=== PATIENT | male | born 1940 | race Caucasian/White ===

== ENCOUNTER 2018-02-13 10:45 | Emergency (ER) | payer OTHER ==
[~2018-02-13] VITALS: Ht 170.2 cm; Wt 59.0 kg
--- NOTE | 2018-02-13 10:50 | NUR ---
Dr London at the bedside for MSE.
[2018-02-13 11:12] LABS: BASOPHILS # (AUTO) 0.1 K/uL (0.0-8.0); BASOPHILS % (AUTO) 0.9 % (0.0-2.0); EOSINOPHILS # (AUTO) 0.2 K/uL (0.0-0.7); EOSINOPHILS % (AUTO) 3.1 % (0.0-7.0); HEMATOCRIT 39.8 % (36.7-47.1); HEMOGLOBIN 13.3 g/dL (12.5-16.3); LYMPHOCYTES # (AUTO) 0.9 K/uL (20.0-40.0); LYMPHOCYTES % (AUTO) 13.9 % (20.5-51.5); MEAN CORPUSCULAR HEMOGLOBIN 29.2 uug (23.8-33.4); MEAN CORPUSCULAR HGB CONC 33 g/dL (32.5-36.3); MEAN CORPUSCULAR VOLUME 87.5 fL (73.0-96.2); MONOCYTES # (AUTO) 0.4 K/uL (2.0-10.0); MONOCYTES % (AUTO) 7.3 % (0.0-11.0); NEUTROPHILS # (AUTO) 4.6 K/uL (1.8-8.9); NEUTROPHILS % (AUTO) 74.8 % (38.5-71.5); PLATELET COUNT (AUTO) 246 K/uL (152-348); RED BLOOD CELL COUNT(AUTO) 4.55 MIL/uL (4.06-5.63); WHITE BLOOD COUNT (AUTO) 6.2 K/uL (3.6-10.2)
--- NOTE | 2018-02-13 11:12 | NUR ---
Pt out of ER for Ct.
[2018-02-13 11:18] LABS: CARBON DIOXIDE 28 mmol/L (21-32); CHLORIDE 106 mmol/L (98-107); CREATININE 0.9 mg/dL (0.6-1.3); GLUCOSE 98 mg/dL (74-106); POTASSIUM 4.1 mmol/L (3.5-5.1); UREA NITROGEN, BLOOD 26 mg/dL (7-18)
[2018-02-13 11:24] LABS: ALANINE AMINOTRANSFERASE 13 U/L (16-63); ALKALINE PHOSPHATASE 123 U/L (50-136); ASPARTATE AMINOTRANSFERASE 16 U/L (15-37); BILIRUBIN,DIRECT 0.1 mg/dL (0.0-0.2); BILIRUBIN,TOTAL 0.5 mg/dL (0.2-1.0); TOTAL PROTEIN, SERUM 7.3 g/dL (6.4-8.2)
--- NOTE | 2018-02-13 11:29 | NUR ---
Pt back from CT, resting in bed. Family at the bedside.
[2018-02-13 12:23] VITALS: BP 133/71
--- NOTE | 2018-02-13 12:30 | NUR ---
called med response, ETA for BLS transfer is 1245.
--- NOTE | 2018-02-13 12:38 | NUR ---
Pt attempted to get to wheelchair to be transfered to pt's daughter auto, but unable. Per pt's family, they need to have pt transfered by private ambulance.
[2018-02-13] MEDS ORDERED: FAMO40TA7 PO (12:53)
[2018-02-13] MEDS ORDERED: ALEN70TA3 PO (12:53)
[2018-02-13] MEDS ORDERED: CARB1TAB40 PO (12:53)
[2018-02-13] MEDS ORDERED: BUPR150T10 PO (12:53)
[2018-02-13] MEDS ORDERED: PRAM3.75 PO (12:53)
[2018-02-13] MEDS ORDERED: LORA0.5T PO (12:53)
[2018-02-13] MEDS ORDERED: ENTA200T PO (12:53)
[2018-02-13] MEDS ORDERED: CARB1TAB21 PO (12:53)
[2018-02-13] MEDS ORDERED: CALC-960 PO (12:53)
[2018-02-13] MEDS ORDERED: TURM1CAP2 PO (12:54)
[2018-02-13] MEDS ORDERED: DOCU250C14 PO (12:54)
[2018-02-13] MEDS ORDERED: BISA-79 PO (12:54)
[2018-02-13] MEDS ORDERED: CHOL200078 PO (12:54)
[2018-02-13] MEDS ORDERED: MIRTAZAPINE PO (12:54)
[2018-02-13] MEDS ORDERED: TAMS0.4C34 PO (12:54)
[2018-02-13] MEDS ORDERED: IV NORMAL SALINE 1000 ML BAG IV ONE (13:30)
--- NOTE | 2018-02-13 13:49 | NUR ---
Pt's family requested pt to go to [facility] and EMT's are not required to do that. Per ER MD [facility] was called. Spoke to [facility] rep.
--- NOTE | 2018-02-13 13:54 | NUR ---
EVERETT CURTIS spoke to [facility] accepting , Dr PRESTON. Transfer info recieved from [facility], BLS transfer to be here at 1445. Pt was fed by family.
--- NOTE | 2018-02-13 14:13 | NUR ---
Report given to ER Dia Black RN.
--- NOTE | 2018-02-13 14:26 | NUR ---
Report given to supervisor assembly department, Pt left ER in stable condition. All belongings sent with pt.
== END 2018-02-13 14:35 | disposition short-term general hospital (02) ==
LOC: ER 10:45
DX: G20 Parkinson's disease (principal); M54.5 Low back pain; R53.1 Weakness; Z79.899 Other long term (current) drug therapy
CPT/HCPCS: 36415; 72131; 80048; 80076; 85025; 99285; A4663; J7030